=== PATIENT | female | born 1970 | race Caucasian/White ===

== ENCOUNTER 2021-04-13 22:18 | Emergency (ER) | payer OTHER ==
[~2021-04-13] VITALS: Ht 154.9 cm; Wt 61.2 kg
--- NOTE | ~2021-04-13 | EMS ---
[address] [address] EMS Patient Care Report Name: ALFREDITOTE Room #: RYAN ANDERSON M.R.#: [id number] Admission: 04/13/21 Attend Phys: Discharge: Date of : 66 Report #: [id number] THIS REPORT FOR: //name// Report Transmitted: 04/13/2021 21:54 EMS Care Summary [place], [place]/[facility] Incident [id number] @ 04/13/2021 21:36 Incident Location [address] [place], [place] [id number] Patient TE CASANOVA Female, 50 Years 1970 Patient Address [address] [place] [id number] Patient History None Reported, Patient Allergies Acetaminophen,Morphine, Patient Medications None Reported, Chief Complaint I can't keep anything down Disposition Transported No Lights/[place] Dispatch Reason Sick Person Transported To [facility] Narrative vomiting diarrhea [address] [address] EMS Patient Care Report Name: ALFREDITOTE Room #: RYAN ANDERSON M.R.#: [id number] Admission: 04/13/21 Attend Phys: Discharge: Date of : 66 Report #: [id number] stomach cramps dizzy back ache 5 days, getting worse Called for a sick. upon arrival, pt was ARNOLD x [address] c/o pain and problems listed above. Pt requested transport to the ER for further eval & tx. She was assisted to the EMS cot and loaded w/o incident. Vitals obtained. Attempt 18g IV, 18g IV and D-stick obtained. En route: Vitals repeated. Pt vomited en route. RR to the ER. Arrived: pt taken to ER #9 and moved to their bed w/o incident. Pt care & report to ER staff. Initial Vitals @21:53P: 95,R: 24,BP: 109/70,Pain: 0/10,GCS: 15,Glucose: 84,CO: 7,SpO2: 98,Revised Trauma: 12, @21:52P: 99,R: 20,BP: 107/63,Pain: 0/10,GCS: 15,CO: 6,SpO2: 99,Revised Trauma: 12, Assessments @21:48MENTAL:Event Oriented,Time Oriented,Person Oriented,Place Oriented,SKIN:HEENT:LUNG SOUNDS:General: Vomiting,General: Nausea,Right Upper: Other,Left Lower: Other,Right Lower: Other,General: Diarrhea,Left Upper: Other,ABDOMEN:General: Vomiting,General: Nausea,Right Upper: Other,Left Lower: Other,Right Lower: Other,General: Diarrhea,Left Upper: Other,PELVIS//GI:EXTREMITIES:Left Arm: No Abnormalities,Right Arm: No Abnormalities,Left Leg: No Abnormalities,Right Leg: No Abnormalities,PULSE:Radial: 2+ Normal,NEURO:No Abnormalities, Impression Vomiting Procedures @21:48ALS AssessmentResponse: UnchangedSucceeded@21:50StretcherResponse: Unchanged@22:04Saline Lock 8cc (18 ga) Site: Antecubital-RightResponse: UnchangedSucceeded@22:00Saline Lock cc (18 ga) Site: Antecubital-LeftResponse: UnchangedFailed Timeline 21:34,Call Received 21:34,Dispatch Notified 21:36,Dispatched 21:38,En Route 21:47,On Scene 21:48,At Patient 21:48,ALS Assessment,Response: UnchangedSucceeded, 21:50,Stretcher,Response: Unchanged [address] [address] EMS Patient Care Report Name: TE CASANOVA Room #: RYAN Mcfadden#: [id number] Admission: 04/13/21 Attend Phys: Discharge: Date of : 66 Report #: [id number] 21:52,BP: 107/63 M,PULSE: 99,RR: 20 R,SPO2: 99 Ox,ETCO2: ,BG: ,PAIN: 0,GCS: 15, 21:53,BP: 109/70 M,PULSE: 95,RR: 24 R,SPO2: 98 Ox,ETCO2: ,B,PAIN: 0,GCS: 15, 22:00,Saline Lock cc 18 ga Site: Antecubital-Left,Response: UnchangedFailed, 22:04,Saline Lock 8cc 18 ga Site: Antecubital-Right,Response: UnchangedSucceeded, 22:04,Depart Scene 22:13,At Destination 22:30,Call Closed Disclaimer v1.1 Copyright 2020 [employer] This EMS Care Summary contains data elements from the applicable legal record (which may be displayed differently). It is designed to provide pertinent information for the following purposes: continuity of care, clinical quality, and state data reporting. The complete legal record is available to ED staff and administrators of the receiving hospital in [facility]'s Patient Tracker. All data is provided "as is."
[2021-04-13 23:14] LABS: URINE BILIRUBIN 2+ (Negative); URINE BLOOD NEGATIVE (Negative); URINE CLARITY CLEAR; URINE COLOR YELLOW; URINE GLUCOSE-RANDOM* NEGATIVE (Negative); URINE KETONES TRACE (Negative); URINE LEUKOCYTES-REFLEX NEGATIVE (Negative); URINE PROTEIN (DIPSTICK) TRACE (Negative)
[2021-04-13 23:16] LABS: ICTOTEST (BILI CONFIRMATORY) Positive (Negative); URINE NITRITE-REFLEX POSITIVE (Negative)
[2021-04-13 23:17] LABS: ABSOLUTE NEUTROPHILS 3.3 thou/uL (1.4-8.2); BASOPHILS 0.2 % (0.0-2.0); EOSINOPHILS 1.7 % (0.0-3.0); HEMATOCRIT 42.5 % (37.0-47.0); HEMOGLOBIN 14.4 gm/dL (12.0-15.0); LYMPHOCYTES 11.7 % (24.0-44.0); MCH 33.5 pg (26.0-34.0); MCHC 33.8 g/dL (28.0-37.0); MCV 99.2 fL (80.0-100.0); MONOCYTES 13.6 % (1.0-8.0); PLATELET COUNT 99 thou/uL (150-400); POLYS 72.8 % (36.0-66.0); RBC 4.28 mil/uL (4.20-5.00); RDW 14.8 % (10.5-14.5); WBC 4.6 thou/uL (4.0-11.0)
[2021-04-13 23:26] LABS: CREATININE 0.5 mg/dL (0.6-1.0); POTASSIUM 3.9 mmol/L (3.5-5.1)
[2021-04-13 23:32] LABS: TOTAL BILIRUBIN 1.8 mg/dL (0.2-1.0); TOTAL PROTEIN 6.2 g/dL (6.4-8.2)
[2021-04-13 23:54] LABS: BACTERIA-REFLEX None Seen /HPF (None Seen); CASTS None Seen /LPF (None Seen); MUCUS 4-6 Moderate strn/LPF (None Seen); SQUAMOUS None Seen /LPF (0-3); URINE WBC-REFLEX None Seen /HPF (0-5)
[2021-04-13 23:55] LABS: CRYSTALS None Seen /LPF (None Seen); URINE RBC None Seen /HPF (NONE SEEN)
[2021-04-14] MEDS ORDERED: ZOFRAN ODT4 MG PO (02:28)
[2021-04-14 02:36] VITALS: BP 99/55
== END 2021-04-14 02:36 | disposition home or self-care (01) ==
LOC: ER 22:18
PROVIDERS: Emergency Medicine
DX: K52.9 Noninfective gastroenteritis and colitis, unspecified (principal); R19.7 Diarrhea, unspecified; R11.2 Nausea with vomiting, unspecified; F17.210 Nicotine dependence, cigarettes, uncomplicated; Z88.6 Allergy status to analgesic agent; Z88.5 Allergy status to narcotic agent